=== PATIENT | female | born 1955 | race Caucasian/White ===

== ENCOUNTER → 2017-07-25 | Outpatient (CLI) | payer OTHER ==
--- NOTE | 2017-07-25 14:41 | WOMENS IMAGING REPORT ---
EXAM DESCRIPTION: BONE DENSITY HIP/SPINE COMPLETED DATE/TIME: 07/25/2017 2:07 pm REASON FOR STUDY: OSTEOPROSIS; M81.0 Z12.31 ENCNTR SCREEN MAMMOGRAM FOR MALIGNANT NEOPLASM OF JEFFREY M 81.0 AGE-RELATED OSTEOPOROSIS W/O CURRENT PATHOLOGICAL FRAC COMPARISON: None. TECHNIQUE: Dual-Energy X-ray Absorptiometry (DEXA) of the AP Spine and Hip. LIMITATIONS: None. FINDINGS: LUMBAR SPINE: The bone mineral density (BMD) measured from L1-L4 in the AP projection correlates with a T-score of -0.6, which is normal as defined by the World Health Organization. HIP: The bone mineral density (BMD) measured in the left femoral neck at the hip correlates with a T-score of -0.4, which is normal as defined by the World Health Organization. IMPRESSION: 1. LUMBAR SPINE: Normal 2. HIP: Normal COMMENT: The World Health Organization defines low BMD as follows: T-score: Normal: Greater than -1.0 Osteopenia: Between -1.0 and -2.5 Osteoporosis: Less than -2.5 without fractures Established osteoporosis: Less than -2.5 with fractures In general, you may wish to consider: Diagnosis Treatment Follow-up DEXA Normal BMD Prevention 2-3 years Osteopenia Prevention/Therapy 1-2 years Osteoporosis Therapy Yearly TECHNICAL DOCUMENTATION: JOB ID: [id number]- All Rights Reserved
--- NOTE | 2017-07-25 18:28 | WOMENS IMAGING REPORT ---
EXAM DESCRIPTION: 3D SCREENING MAMMO BILAT COMPLETED DATE/TIME: 07/25/2017 2:07 pm REASON FOR STUDY: ROUTINE SCREENING; Z12.31 Z12.31 ENCNTR SCREEN MAMMOGRAM FOR MALIGNANT NEOPLASM O F JEFFREY M81.0 AGE-RELATED OSTEOPOROSIS W/O CURRENT PATHOLOGICAL FRAC COMPARISON: 2015, 2014 TECHNIQUE: Standard craniocaudal and mediolateral oblique views of each breast recorded using digita l acquisition and breast tomosynthesis. LIMITATIONS: None. FINDINGS: Findings present which are benign by mammographic criteria. No suspicious masses, calcifi cations or architectural distortion. Pertinent benign findings: Bilateral benign breast parenchymal calcifications. Read with the assistance of CAD. .[facility] - R2 Cenova Version 1.3 .[facility] Imaging - R2 Cenova Version 1.3 .[facility] - R2 Cenova Version 2.4 .[facility] - R2 Cenova Version 2.4 .[facility] - R2 Ged Preparation Teacher Version 9.2 Benign mammographic findings may include one or more of the following: Smooth masses, popcorn/rim/co arse calcifications, asymmetries, post-procedure changes, and lesions with long-standing stability. IMPRESSION: BENIGN MAMMOGRAPHIC FINDINGS. BIRADS 2 BREAST DENSITY: c. The breasts are heterogeneously dense, which may obscure small masses. BIRAD: 2 BENIGN FINDING(S) RECOMMENDATION: RECOMMENDATION: ROUTINE SCREENING Please continue yearly bilateral screening tomosynthesis in July 2018 COMMENT: The patient has been notified of the results by letter per MQSA requirements. Additional no tification policies are in place for contacting patient with suspicious or incomplete findings. Quality ID #[id number]: The [employer] recommends an annual screening mammogram for women aged 40 years or over. This facility utilizes a reminder system to ensure that all patients receive reminder letters, and/or direct phone calls for appointments. This includes reminders for routine scr eening mammograms, diagnostic mammograms, or other Breast Imaging Interventions when appropriate. Th is patient will be placed in the appropriate reminder system. The [employer] (ACR) has developed recommendations for screening MRI of the breast s in certain patient populations, to be used in conjunction with mammography. Breast MRI surveillanc e may be appropriate for women with more than 20% lifetime risk of developing breast cancer as deter mined by genetic testing, significant family history of the disease, or history of mantle radiation f or Hodgkins Disease. ACR Practice Guidelines 2008. DBT Technology DBT is a type of tomographic mammography. With conventional mammography, overlapping breast tissue ma y make lesions difficult to detect, even with good compression. DBT uses an x-ray tube that rotates a round the breast, taking images at different angles. These images are then combined to create thin sl ices of the breast that the radiologist can view as a 3D reconstruction. The [employer] unit can perform full-field digital mammograms (2D imaging); or DBT (3D imaging); or both, in a combination mode that quickly performs both the mammogram and the tomosynthesis scan while the breast is still compressed. PQRS 6045F: Fluoroscopic imaging is not utilized for breast tomosynthesis. TECHNICAL DOCUMENTATION: FINDING NUMBER: (1) ASSESSMENT: (1) JOB ID: [id number] [employer]- All Rights Reserved
== END ==
LOC: WI 13:20
PROVIDERS: ATTEND Internal Medicine
DX: Z12.31 Encounter for screening mammogram for malignant neoplasm of breast (principal); M81.0 Age-related osteoporosis without current pathological fracture
CPT/HCPCS: 77063; 77080; G0202; 77067

== ENCOUNTER 2018-02-03 07:43 | Day surgery (SDC) | payer OTHER ==
[~2018-02-03 07:43] MED LIST: CHONDR SU A NA/HYALUR INTRAOC KIT (SURGICARE) ONE; EPINEPHRINE INJ/PF 1 MG/1 ML AMPULE ONE; KETOROLAC TROMETHAMINE 0.45% 4 DROP/0.4 ML DROPERETTE OS PRN; LIDOCAINE 1% INJ-PF (10 MG/ML) 30 ML SDV ONE; MIDAZOLAM 2 MG/2 ML INJ ONE
[2018-02-03] MEDS: TETRACAINE HCL 0.5% OPH SOLN 2 ML OS PRN ×3 (08:16→09:24)
[2018-02-03] MEDS: CYCLOPENTOLATE 0.2%/PHENYLEPHRINE 1% OPH SOLN 2 ML OS PRN ×3 (08:17→08:45)
[2018-02-03] MEDS: TROPICAMIDE 1% OPH SOLN 3 ML OS PRN ×3 (08:17→08:45)
[2018-02-03] MEDS: BESIFLOXACIN HCL 0.6% OPH SUSP 5 ML BOTTLE OS PRN ×3 (08:18→09:49)
[2018-02-03] MEDS ORDERED: MIDAZOLAM 2 MG/2 ML INJ ONE (09:55)
--- NOTE | 2018-02-03 13:49 | [facility] DISCHARGE SUMMARY E ---
[facility] Discharge Summary NAME: WILLIAM BEGUM AGE: 62Y ADMITTED: 02/03/2018 DISCHARGED: 02/03/2018 DIAGNOSIS: CATARACT, LEFT EYE. SUMMARY: This is a 62-year-old female who underwent cataract extraction of the left eye. She underwent surgery because she was having difficulty driving at night secondary to glare from headlights and trouble seeing road signs. She is to be on a regular diet, no bending at her waist, and no heavy lifting. She should use her Besivance, Ilevro and Durezol at 3 p.m. and 8 p.m. and I will see for a same-day postop visit 6 hours after her procedure. DICTATING PHYSICIAN: COLLIN GROVER M.D. [id number] PHY#: [id number] ID: [id number] JOB#: [id number] ACCT: [id number] cc:COLLIN GROVER M.D. >
--- NOTE | 2018-02-03 13:49 | [facility] OPERATIVE REPORT E ---
[facility] Operative Report NAME: WILLIAM BEGUM AGE: 62Y DATE OF SURGERY: 02/03/2018 ROOM: PREOPERATIVE DIAGNOSIS: CATARACT, LEFT EYE. POSTOPERATIVE DIAGNOSIS: CATARACT, LEFT EYE. OPERATION: Cataract extraction with intraocular lens implant of the left eye. SURGEON: COLLIN GROVER M.D. ANESTHESIA: Topical. PROCEDURE: After obtaining appropriate consent, the patient's left eye was prepped and draped in sterile fashion as well as the surgeon in a sterile manner and cataract surgery was started. First a paracentesis blade was used to make a small side-port incision. Viscoelastic was used to inflate the anterior chamber. Next a 2.4 mm incision was made with the paracentesis blade. A continuous capsulorrhexis incision was made using a cystotome and Utrata forceps. Following this hydrodissection was carried out to make the lens fully loose and mobile and it was rotated 90 degrees. Following this, a sdyuaz-qyi-vudaavp technique was used to phacoemulsify the lens with a CDE of 5.34. The remaining cortex was removed with irrigation/aspiration. Provisc was instilled into the capsular bag to inflate the bag. A SN60WF, 25.0 diopter lens was placed. The remaining viscoelastic material was removed with irrigation/aspiration. Following this, a 10-0 nylon suture was used to close the incision and it was found to be watertight. Vigamox was instilled in the eye and a protective shield was placed over the eye. The patient returned to the postoperative recovery in stable condition. DICTATING PHYSICIAN: COLLIN GROVER M.D. [id number] PHY#: [id number] ID: [id number] JOB#: [id number] ACCT: [id number] cc:COLLIN GROVER M.D. >
== END 2018-02-03 10:31 | disposition home or self-care (01) ==
LOC: SC 07:43
PROVIDERS: ATTEND Internal Medicine
PROC: 08RK3JZ Replacement of Left Lens with Synthetic Substitute, Percutaneous Approach (ICD-10-PCS; principal; 2018-02-03 09:00)
DX: H25.13 Age-related nuclear cataract, bilateral (principal); E11.9 Type 2 diabetes mellitus without complications; K21.9 Gastro-esophageal reflux disease without esophagitis; E66.9 Obesity, unspecified; Z88.0 Allergy status to penicillin; Z88.5 Allergy status to narcotic agent; Z79.84 Long term (current) use of oral hypoglycemic drugs; Z79.899 Other long term (current) drug therapy; Z87.891 Personal history of nicotine dependence; Z68.35 Body mass index [BMI] 35.0-35.9, adult
CPT/HCPCS: 66984; 82962; V2632; J2250; J3490 ×2; J0171; 142

== ENCOUNTER → 2018-07-27 | Outpatient (CLI) | payer MEDICARE, OTHER ==
--- NOTE | 2018-07-27 14:09 | WOMENS IMAGING REPORT ---
EXAM DESCRIPTION: 3D SCREENING MAMMO BILAT COMPLETED DATE/TIME: 07/27/2018 9:11 am REASON FOR STUDY: BILATERAL SCREENING MAMMO 3D/Z12.31 Z12.31 ENCNTR SCREEN MAMMOGRAM FOR MALIGNANT NEOPLASM OF JEFFREY COMPARISON: Multiple since 2014 TECHNIQUE: Standard craniocaudal and mediolateral oblique views of each breast recorded using digita l acquisition and breast tomosynthesis. LIMITATIONS: None. FINDINGS: Findings present which are benign by mammographic criteria. No suspicious masses, calcifi cations or architectural distortion. Pertinent benign findings: Benign bilateral breast parenchymal calcifications Read with the assistance of CAD. .[facility] - R2 Cenova Version 1.3 .[facility] Imaging - R2 Cenova Version 1.3 .[facility] - R2 Cenova Version 2.4 .[facility] - R2 Cenova Version 2.4 .[facility] - R2 [employer] Weaver Version 9.2 Benign mammographic findings may include one or more of the following: Smooth masses, popcorn/rim/co arse calcifications, asymmetries, post-procedure changes, and lesions with long-standing stability. IMPRESSION: BENIGN MAMMOGRAPHIC FINDINGS. BIRADS 2 BREAST DENSITY: c. The breasts are heterogeneously dense, which may obscure small masses. BIRAD: 2 BENIGN FINDING(S) RECOMMENDATION: RECOMMENDATION: ROUTINE SCREENING Please continue yearly bilateral screening tomosynthesis in July 2019 COMMENT: The patient has been notified of the results by letter per SA requirements. Additional no tification policies are in place for contacting patient with suspicious or incomplete findings. Quality ID #[id number]: The [employer] recommends an annual screening mammogram for women aged 40 years or over. This facility utilizes a reminder system to ensure that all patients receive reminder letters, and/or direct phone calls for appointments. This includes reminders for routine scr eening mammograms, diagnostic mammograms, or other Breast Imaging Interventions when appropriate. Th is patient will be placed in the appropriate reminder system. The [employer] (ACR) has developed recommendations for screening MRI of the breast s in certain patient populations, to be used in conjunction with mammography. Breast MRI surveillanc e may be appropriate for women with more than 20% lifetime risk of developing breast cancer as deter mined by genetic testing, significant family history of the disease, or history of mantle radiation f or Hodgkins Disease. ACR Practice Guidelines 2008. DBT Technology DBT is a type of tomographic mammography. With conventional mammography, overlapping breast tissue ma y make lesions difficult to detect, even with good compression. DBT uses an x-ray tube that rotates a round the breast, taking images at different angles. These images are then combined to create thin sl ices of the breast that the radiologist can view as a 3D reconstruction. The [employer] unit can perform full-field digital mammograms (2D imaging); or DBT (3D imaging); or both, in a combination mode that quickly performs both the mammogram and the tomosynthesis scan while the breast is still compressed. PQRS 6045F: Fluoroscopic imaging is not utilized for breast tomosynthesis. TECHNICAL DOCUMENTATION: FINDING NUMBER: (1) ASSESSMENT: (1) JOB ID: [id number] [email or web address]- All Rights Reserved Reading location - IP/workstation name: [email or web address]
== END ==
LOC: WI 08:35
PROVIDERS: ATTEND Internal Medicine
DX: Z12.31 Encounter for screening mammogram for malignant neoplasm of breast (principal)
CPT/HCPCS: 77063; 77067

== ENCOUNTER → 2019-02-01 | Outpatient (CLI) | payer MEDICARE, OTHER ==
--- NOTE | 2019-02-01 10:38 | WOMENS IMAGING REPORT ---
EXAM DESCRIPTION: BONE DENSITY HIP/SPINE COMPLETED DATE/TIME: 02/01/2019 9:01 am REASON FOR STUDY: BONE DENSITY;M81.0 M81.0 AGE-RELATED OSTEOPOROSIS W/O CURRENT PATHOLOGICAL FRAC COMPARISON: 2016 TECHNIQUE: Dual-Energy X-ray Absorptiometry (DEXA) of the AP Spine and Hip. LIMITATIONS: None. FINDINGS: LUMBAR SPINE: The bone mineral density (BMD) measured from L1-L4 in the AP projection correlates with a T-score of -0.5, previously -0.6, which is normal as defined by the World Health Organization. HIP: The bone mineral density (BMD) measured in the left hip correlates with a T-score of -0.3, previously -0.4, which is normal as defined by the World Health Organization. IMPRESSION: 1. LUMBAR SPINE: NORMAL. 2. HIP: NORMAL. COMMENT: The World Health Organization defines low BMD as follows: T-score: Normal: Greater than -1.0 Osteopenia: Between -1.0 and -2.5 Osteoporosis: Less than -2.5 without fractures Established osteoporosis: Less than -2.5 with fractures In general, you may wish to consider: Diagnosis Treatment Follow-up DEXA Normal BMD Prevention 2-3 years Osteopenia Prevention/Therapy 1-2 years Osteoporosis Therapy Yearly TECHNICAL DOCUMENTATION: JOB ID: [id number] [employer]- All Rights Reserved Reading location - IP/workstation name: [email or web address]
== END ==
LOC: WI 08:41
PROVIDERS: ATTEND Internal Medicine
DX: M81.0 Age-related osteoporosis without current pathological fracture (principal)
CPT/HCPCS: 77080

== ENCOUNTER → 2019-07-28 | Outpatient (CLI) | payer MEDICARE, OTHER ==
--- NOTE | 2019-07-28 09:37 | WOMENS IMAGING REPORT ---
EXAM DESCRIPTION: BILAT SCREENING MAMMO W/CAD COMPLETED DATE/TIME: 07/28/2019 8:44 am REASON FOR STUDY: Z12.31 SCREENING MAMMO Z12.31 ENCNTR SCREEN MAMMOGRAM FOR MALIGNANT NEOPLASM OF B RE COMPARISON: 2014 and subsequent. EXAM PARAMETERS: Standard craniocaudal and mediolateral oblique views of each breast recorded using digital acquisition. Read with the assistance of CAD. .[facility] - [employer] Unit Operator Version 9.2 LIMITATIONS: None. FINDINGS: Findings present which are benign by mammographic criteria. No suspicious masses, calcifi cations or architectural distortion. Pertinent benign findings: Loosely scattered benign stable calcifications bilaterally. Benign mammographic findings may include one or more of the following: Smooth masses, popcorn/rim/co arse calcifications, asymmetries, post-procedure changes, and lesions with long-standing stability. IMPRESSION: BENIGN MAMMOGRAPHIC FINDINGS. BIRADS 2 BREAST DENSITY: c. The breasts are heterogeneously dense, which may obscure small masses. BIRAD: ASSESSMENT: 2 BENIGN FINDING(S) RECOMMENDATION: ROUTINE SCREENING COMMENT: The patient has been notified of the results by letter per MQSA requirements. Additional no tification policies are in place for contacting patient with suspicious or incomplete findings. Quality ID #[id number]: The [employer] recommends an annual screening mammogram for women aged 40 years or over. This facility utilizes a reminder system to ensure that all patients receive reminder letters, and/or direct phone calls for appointments. This includes reminders for routine scr eening mammograms, diagnostic mammograms, or other Breast Imaging Interventions when appropriate. Th is patient will be placed in the appropriate reminder system. TECHNICAL DOCUMENTATION: FINDING NUMBER: (1) ASSESSMENT: (1) JOB ID: [id number] [employer] All Rights Reserved Reading location - IP/workstation name: [email or web address]
== END ==
LOC: WI 08:30
PROVIDERS: ATTEND Internal Medicine
DX: Z12.31 Encounter for screening mammogram for malignant neoplasm of breast (principal)
CPT/HCPCS: 77067

== ENCOUNTER → 2019-10-08 | Outpatient (CLI) | payer MEDICARE, OTHER ==
--- NOTE | 2019-10-08 09:10 | RADIOLOGY REPORT (SQ) ---
EXAM DESCRIPTION: U/S ABDOMEN COMPLETE W/O DOP COMPLETED DATE/TIME: 10/08/2019 7:43 am REASON FOR STUDY: NAUSEA (R11.0) R11.0 NAUSEA COMPARISON: None. TECHNIQUE: Dynamic and static grayscale images acquired of the abdomen and recorded on PACS. Additio nal selected color Doppler and spectral images recorded. Note: Study does not meet criteria for complete doppler/duplex scan LIMITATIONS: None. FINDINGS: PANCREAS: The visualized portions of the pancreas appear normal. LIVER: Increased echotexture of the hepatic parenchyma. LIVER VASCULATURE: Normal directional flow of the main portal vein and hepatic veins. GALLBLADDER: The gallbladder surgically absent. ULTRASOUND-DETECTED RICE'S SIGN: Negative. INTRAHEPATIC DUCTS AND COMMON DUCT: The common bile duct measures 5 mm in diameter. There is no dila tation of the intrahepatic biliary ducts. INFERIOR VENA CAVA: Normal flow. AORTA: No aneurysm. RIGHT KIDNEY: The right kidney measures 14.1 cm in length. There is a anechoic structure that demon strates posterior acoustic enhancement in the a midportion of the kidney that measures 3.8 x 3.7 x 4 cm. There is no hydronephrosis or calcification. LEFT KIDNEY: The left kidney measures 12.1 cm in length. There is no hydronephrosis or calcificatio n. SPLEEN: The spleen measures 11.1 cm in length. PERITONEAL AND PLEURAL SPACES: No ascites or effusions. OTHER: No other finding. IMPRESSION: 1. Increased echotexture of the hepatic parenchyma suggestive of hepatic steatosis. 2. Status post cholecystectomy. 3. Right renal cyst that measures 3.8 x 3.7 x 4 cm. TECHNICAL DOCUMENTATION: JOB ID: [id number] [employer]- All Rights Reserved Reading location - IP/workstation name: [email or web address]
--- NOTE | 2019-10-08 14:14 | RADIOLOGY REPORT (SQ) ---
EXAM DESCRIPTION: NM GASTRIC EMPTYING STUDY COMPLETED DATE/TIME: 10/08/2019 1:49 pm REASON FOR STUDY: NAUSEA (R11.0) R11.0 NAUSEA COMPARISON: None. RADIONUCLIDE AND DOSE: 2 millicuries Tc-99m Sulfur Colloid. Egg salad sandwich The route of agent administration: Oral. TECHNIQUE: 1 minute serial static imaging performed at time of meal, 1 hour, 2 hours, 3 hours, and 4 hours as needed. Once stomach reaches 90% emptying, the test is complete. Image intensity values pl otted with respect to time with linear regression algorithm. LIMITATIONS: None. FINDINGS: Patient was observed for 4 hours. Immediate post meal serves as baseline. Gastric emptying at 30 minutes was 11%. Gastric emptying at 60 minutes was 22% Gastric emptying at 90 minutes was 33%. Gastric emptying at 120 minutes was 44%. Gastric emptying at 240 minutes was 87.9%. Normal values: 60 minutes: 30-90% retained. If less than 30%, abnormally rapid emptying. If greater than 90%, delaye d gastric emptying. 120 minutes: <60% retained. If greater than 60%, delayed gastric emptying. 240 minutes: <10% retained. If greater than 10%, delayed gastric emptying. IMPRESSION: Delayed gastric emptying. TECHNICAL DOCUMENTATION: JOB ID: [id number] [employer]- All Rights Reserved rev-04/03 Reading location - IP/workstation name: [email or web address]
== END ==
LOC: RAD 07:01
PROVIDERS: ATTEND Internal Medicine Gastroenterology
DX: R11.0 Nausea (principal)
CPT/HCPCS: 76700; 78264; A9541

== ENCOUNTER → 2020-08-16 | Outpatient (CLI) | payer MEDICARE, OTHER ==
--- NOTE | 2020-08-16 14:44 | WOMENS IMAGING REPORT ---
EXAM DESCRIPTION: 3D SCREENING MAMMO BILAT IMAGES COMPLETED DATE/TIME: 08/16/2020 2:18 pm REASON FOR STUDY: Z12.31 ENCNTR SCREEN MAMMOGRAM FOR MALIGNANT NEOPLASM OF BREAST Z12.31 ENCNTR SCR EEN MAMMOGRAM FOR MALIGNANT NEOPLASM OF JEFFREY COMPARISON: Priors dating back to 2014. EXAM PARAMETERS: Standard craniocaudal and mediolateral oblique views of each breast recorded using digital acquisition and breast tomosynthesis. Read with the assistance of CAD. .[facility] - Special Library Librarian Version 9.2 LIMITATIONS: None. FINDINGS: Findings present which are benign by mammographic criteria. No suspicious masses, calcific ations or architectural distortion. Pertinent benign findings: Stable calcifications. Benign mammographic findings may include one or more of the following: Smooth masses, popcorn/rim/coa rse calcifications, asymmetries, post-procedure changes, and lesions with long-standing stability. IMPRESSION: BENIGN MAMMOGRAPHIC FINDINGS. BIRADS 2 BREAST DENSITY: b. There are scattered areas of fibroglandular density. BIRAD: ASSESSMENT: 2 BENIGN FINDING(S) RECOMMENDATION: ROUTINE SCREENING COMMENT: The patient has been notified of the results by letter per SA requirements. Additional no tification policies are in place for contacting patient with suspicious or incomplete findings. Quality ID #225: The [employer] [place] [employer] recommends an annual screening mammogram for women aged 40 years or over. This facility utilizes a reminder system to ensure that all patients receive reminder letters, and/or direct phone calls for appointments. This includes reminders for routine scr eening mammograms, diagnostic mammograms, or other Breast Imaging Interventions when appropriate. Th is patient will be placed in the appropriate reminder system. TECHNICAL DOCUMENTATION: FINDING NUMBER: (1) ASSESSMENT: (1) JOB ID: [id number] [employer]- All Rights Reserved Reading location - IP/workstation name: [email or web address]
== END ==
LOC: WI 13:54
PROVIDERS: ATTEND Specialist
DX: Z12.31 Encounter for screening mammogram for malignant neoplasm of breast (principal)
CPT/HCPCS: 77063; 77067